=== PATIENT | female | born 1975 | race Caucasian/White ===

== ENCOUNTER → 2021-02-16 | Outpatient (CLI) | payer OTHER ==
--- NOTE | 2021-02-16 12:01 | ECHOF ---
Referral Reason:R07.9 chest pain MEASUREMENTS -------- HEIGHT: 162.6 cm WEIGHT: 78.0 kg BP: RVIDd: 3.1 cm (< 3.3) IVSd: 0.7 cm (0.6 - 1.1) LVIDd: 4.3 cm (3.9 - 5.3) LVPWd: 0.8 cm (0.6 - 1.1) IVSs: 1.6 cm LVIDs: 2.0 cm LVPWs: 1.5 cm LAESV Index (A-L): 22.96 ml/m Ao Diam: 3.2 cm (2.0 - 3.7) AV Cusp: 2.0 cm (1.5 - 2.6) LA Diam: 3.1 cm (2.7 - 3.8) MV EXCURSION: 15.618 mm (> 18.000) MV EF SLOPE: 141 mm/s (70 - 150) EPSS: 0.7 cm MV E Gerardo: 0.96 m/s MV DecT: 215 ms MV A Gerardo: 0.86 m/s MV E/A Ratio: 1.11 RAP: 5.00 mmHg RVSP: 27.03 mmHg FINDINGS -------- This was a technically good study. The left ventricular size is normal. Left ventricular wall thickness is normal. Overall left vent ricular systolic function is normal with, an EF between 55 - 60 %. The diastolic filling pattern is normal for the age of the patient 9.65. The right ventricle is normal in size. The left atrial size is normal. Normal LA size by volume 22+/-6 ml/m2. The right atrial size is normal. The aortic valve is trileaflet and appears structurally normal. The mitral valve is normal. Peab-jv-njnnjarm mitral regurgitation is present. The tricuspid valve appears structurally normal. Mild tricuspid regurgitation present. Right vent ricular systolic pressure is normal at < 35 mmHg. There is no pulmonic regurgitation present. The aortic root size is normal. Normal inferior vena cava with normal inspiratory collapse consistent with estimated right atrial pre ssure of 5 mmHg. There is no pericardial effusion. CONCLUSIONS -------- 1. The left ventricular size is normal. 2. Left ventricular wall thickness is normal. 3. Overall left ventricular systolic function is normal with, an EF between 55 - 60 %. 4. The diastolic filling pattern is normal for the age of the patient 9.65 5. Rhzb-gc-bbwnxbtm mitral regurgitation is present. 6. Mild tricuspid regurgitation present. 7. There is no pericardial effusion. CLINICAL DIETETIC TECHNICIAN: Kathrni Villalobos RDCS
--- NOTE | 2021-02-16 14:08 | ECHOS ---
STRESS ECHOCARDIOGRAM DATE OF STUDY: 02/16/2021 INDICATIONS: Chest pain BASELINE HEART RATE: 67 BASELINE BLOOD PRESSURE: 97/63 MAXIMUM HEART RATE: 172 MAXIMUM BLOOD PRESSURE: 145/57 85% MPHR: 148 100% MPHR: 174 METS: 7.9 MAXIMUM STAGE REACHED: 3 TOTAL EXERCISE TIME: Chest pain. CLINICAL INFORMATION: STRESS DATA: Heart rate 67, pressure 95/67 mmHg. Baseline EKG showed sinus mechanism. The patient exercised on the treadmill according to Gaudencio protocol for a total of 6 minutes and achieved 7.9 METS. Max heart rate was 172, which is about 99% of maximum predicted heart rate, and maximum blood pressure was 145/57 mmHg. Clinically the patient did not have any symptoms. The EKG did not show any significant issue. The EKG showed about 0.[address]-segment changes on recovery. ECHOCARDIOGRAM IMAGES: Echocardiogram images from parasternal long axis view, parasternal short axis view, apical 4-chamber and apical 2-chamber views were obtained as the baseline images, at the peak of the heart rate as well as on recovery. The echocardiogram images showed good augmentation in the left ventricular systolic function without any evidence of wall motion abnormalities concerning for ischemia. CONCLUSION: 1. Good exercise tolerance. 2. Mild EKG changes in response to exercise. 3. Normal echocardiogram in response to exercise. MMODL / IJN: [id number] /
== END | disposition home or self-care (01) ==
LOC: RADECHMAIN 08:09
PROVIDERS: ATTEND Family Medicine
DX: I08.1 Rheumatic disorders of both mitral and tricuspid valves (principal)
CPT/HCPCS: 93306; 93351

== ENCOUNTER → 2021-03-01 | Outpatient (CLI) | payer OTHER ==
--- NOTE | 2021-03-01 09:19 | US ---
EXAMINATION TYPE: US thyroid st tissue head/neck DATE OF EXAM: 03/01/2021 COMPARISON: NONE CLINICAL HISTORY: E04.9 GOITER. GLAND SIZE: Right Lobe: 5.8 x 1.1 x 1.6 cm Overall Parenchyma: homogenous Left Lobe: 5.2 x 1.1 x 2.0 cm Overall Parenchyma: homogeneous Isthmus Thickness: 0.3 cm NODULES RIGHT: # of nodules measured on right: 0 LEFT: # of nodules measured on left: 0 ISTHMUS: # of nodules measured in the isthmus: 0 Bilateral neck scanned, no evidence of lymphadenopathy. Normal thyroid ultrasound. IMPRESSION: Unremarkable study.
--- NOTE | 2021-03-02 12:13 | MM ---
Reason for exam: screening (asymptomatic). Baseline mammogram. History: Patient had first child at age 35. Family history of breast cancer in maternal grandmother. Took hormonal contraceptives for 20 years beginning at age 15. Physical Findings: Nurse did not find any significant physical abnormalities on exam. MG Screening Mammo w CAD Bilateral CC and MLO view(s) were taken. There are scattered fibroglandular densities. There is no discrete abnormality. ASSESSMENT: Negative, BI-RAD 1 RECOMMENDATION: Routine screening mammogram of both breasts in 1 year.
== END | disposition home or self-care (01) ==
LOC: RADUSWWP 08:56
PROVIDERS: ATTEND Family Medicine
DX: Z12.31 Encounter for screening mammogram for malignant neoplasm of breast (principal); E04.9 Nontoxic goiter, unspecified
CPT/HCPCS: 76536; 77067